=== PATIENT | female | born 2005 | race Hispanic/Latino ===

== ENCOUNTER 2025-11-05 11:16 | Emergency (ER) | payer OTHER, SELFPAY ==
[2025-11-05] VITALS (20 sets, daily range): BP systolic 109–147; BP diastolic 69–90; PULSE 70–79; RESP 16–17; TEMP 36.4–36.7; O2SAT 98–100
--- OUTSIDE RECORDS SUMMARY | 2025-11-05 11:18 | XMS_ITS | Data Portability ---
Author Organization [facility] [place] Address [address] [place] [address] Assessment Encounter Date Assessment Date Assessment LastModified by Organization Details LastModified Time 09/03/2022 09/03/[address] trich Discussed abstinence, safe sex, contraception, STDs, and . discussed NSAIDS (ibuprofen) vs OCP for control of cramps. Discussed that OCP would also help with making periods shorter, insight director, and help with PMS/anxiety symptoms. She and mom would like to try OCP> Discussed the usage, side effects, risks, and benefits of OCP use. Questions answered. Prescription given for sprinted. She will start OCP with next menses and follow up for a med check in 4 mos. [email or web address] Not available 09/03/2022 19:22:08 01/06/2023 01/06/2023 doing reasonably well on ocp dysmenorrhea improved but not gone, still one bad day- first day of period will add scheduled ibuprofen starting day before period- 600mg TID day before period and first day of period. IF this does not help, will do US OCP refilled [email or web address] Not available 01/07/2023 09:00:57 09/28/2024 09/28/2024 Annual gynecological exam performed. Patient will come back in a year unless there are new symptoms. [email or web address] Not available 09/28/2024 16:39:14 Plan of Treatment Reminders Order Date Submit Date Provider Last Modified By Organization Details Last Modified Time Details Appointments None recorded. Lab None recorded. Referral None recorded. Procedures None recorded. Surgeries None recorded. Imaging None recorded. Medication Orders Slynd 4 mg (28) tablet 2024 025 [facility], [address] [place] [address], [address], 5 09:27:51 Sprintec (28) 0.25 mg-0.035 mg tablet 2023 024 [facility], [address] [place] [address], [address], 5 09:27:55 Sprintec (28) 0.25 mg-0.035 mg tablet 2023 024 [facility] [address], [address] [place] [address], [address], 5 09:27:55 Sprintec (28) 0.25 mg-0.035 mg tablet 2022 023 [facility], [address] [place] [address], [address], 5 09:27:55 Sprintec (28) 0.25 mg-0.035 mg tablet 2021 022 [place] [address], [address] [place] [address], [address], 5 09:27:55 Patient TargetsNo targets recorded. Patient InstructionsNo instructions recorded. Reason for Referral None Reported. Results Created Date Observation Date Name Description Value Unit Range Abnormal Flag Note LastModifiedBy Organization Detail LastModifiedTime 09/03/2009/03/2022 CT/GC AND TRICH OMONA S VAGIN ANDERSON (RRNA ), URINE chlamydia trachomatis, PCR Negati ve negati ve Not Available [facility] [address] [place] [address], [phone], 09/04/2022 11:54:29 09/03/20 22 09/03/2022 CT/GC AND TRICH OMONA S VAGIN ANDERSON (RRNA ), URINE neisseria gonorrhoeae, PCR Negati ve negati ve Not Available [facility] [address] [place], [address], 09/04/2022 11:54:29 09/03/20 22 09/03/2022 CT/GC AND TRICH OMONA S VAGIN ANDERSON (RRNA ), URINE trichomonas vaginalis ribosomal RNA (rrna) Negati ve negati ve Not Available [facility] [address] [place], [address], 09/04/2022 11:54:29 09/28/20 24 09/28/2024 CT/GC AND TRICH OMONA S VAGIN ANDERSON (RRNA ), URINE chlamydia trachomatis, PCR Negati ve negati ve Not Available [facility] (Lab) [address] [facility], [place], [address], 2024 13:40:15 09/28/20 24 09/28/2024 CT/GC AND TRICH OMONA S VAGIN ANDERSON (RRNA ), URINE neisseria gonorrhoeae, PCR Negati ve negati ve Not Available [facility] (Lab) [address] [facility], [place], [address], 2024 13:40:15 09/28/20 24 09/28/2024 CT/GC AND TRICH OMONA S VAGIN ANDERSON (RRNA ), URINE trichomonas vaginalis ribosomal RNA (rrna) Negati ve negati ve Not Available [facility] (Lab) [address], [place], [address], 2024 13:40:15 Result Notes None recorded. Problems Name Problem SNOMED Code Status Onset Date Resolution Date Notes Provider Name and Address Organization Details Recorded Time Mixed anxiety and depressive disorder 644847319 Active 2023 Sarah de santiago [facility] 16:40:50 Attention deficit hyperactivity disorder 641008632 Active 2023 Sarah de santiago [facility] 16:40:57 Problem Notes None recorded. Medical Equipment None Reported. Allergies No known drug allergies Medications Name Sig Start Date Stop Date Status Note LastModified by Organization Details LastModified Time fluoxetine 40 mg capsule TAKE 1 CAPSULE BY MOUTH ONCE DAILY IN THE MORNING FOR 30 DAYS active Not Available Not Available No t Available Concerta 18 mg tablet,exte nded release TAKE 1 TABLET BY MOUTH IN THE MORNING 01/06 completed Not Available Not Available Not Available fluoxetine 10 mg tablet TAKE 1 TABLET BY MOUTH ONCE DAILY ALONG WITH ONE 20MG TABLET FOR A TOTAL DOSE OF 30MG 01/14 completed Not Available Not Available Not Available Concerta 54 mg tablet,exte nded release TAKE 1 TABLET BY MOUTH IN THE MORNING active Not Available Not Available No t Available fluoxetine 20 mg tablet TAKE 1 TABLET BY MOUTH ONCE DAILY 01/14 completed Not Available Not Available Not Available triamcinolo ne acetonide 0.1 % topical ointment APPLY OINTMENT TOPICALLY TO AFFECTED AREA TWICE DAILY active Not Available Not Available No t Available lansoprazol e 30 mg capsule,del ayed release TAKE 1 CAPSULE BY MOUTH TWICE DAILY 09/28 completed Not Available Not Available Not Available Concerta 36 mg tablet,exte nded release TAKE 1 TABLET BY MOUTH IN THE MORNING 09/28 completed Not Available Not Available Not Available omeprazole 20 mg capsule,del ayed release TAKE 1 CAPSULE BY MOUTH TWICE DAILY BEFORE BREAKFAST AND SUPPER 09/28 completed Not Available Not Available Not Available amoxicillin 875 mg-potassiu m clavulanate 125 mg tablet TAKE 1 TABLET BY MOUTH TWICE DAILY 10/10 completed Not Available Not Available Not Available Concerta 27 mg tablet,exte nded release TAKE 1 TABLET BY MOUTH IN THE MORNING 01/14 completed Not Available Not Available Not Available Sprintec (28) 0.25 mg-0.035 mg tablet Take 1 tablet by mouth once daily 10/13 completed Not Available Not Available Not Available fluoxetine 60 mg tablet TAKE 1 TABLET BY MOUTH ONCE DAILY 10/12 completed Not Available Not Available Not Available Slynd 4 mg (28) tablet Take 1 tablet every day by oral route. 2024 active Not Available Not Available Not Avai lable Vitals Date Recorded Body height Body mass index (BMI) [Percentile] Per age and sex Body mass index (BMI) Body weight Systolic And Diastolic Provider Name and Address Organization Details Last Updated DateTime 01/06/2023 162.56 cm 49 % 20.9 kg/m2 79537.2 7 g 114/72 mm[Hg] [facility] 3 17:39:14 Date Recorded Body weight Body mass index (BMI) Body mass index (BMI) [Percentile] Per age and sex Body height Systolic And Diastolic Provider Name and Address Organization Details Last Updated DateTime 01/15/2024 47814.3 8 g 23 kg/m2 68 % 162.56 cm 118/78 mm[Hg] Viktoria Eldridge [facility] 4 15:00:34 Date Recorded Body height Body mass index (BMI) Body mass index (BMI) [Percentile] Per age and sex Body weight Systolic And Diastolic Provider Name and Address Organization Details Last Updated DateTime 09/03/2022 162.56 cm 20.9 kg/m2 51 % 78003.2 7 g 104/63 mm[Hg] [facility] 2 15:58:40 Date Recorded Body height Body mass index (BMI) Body mass index (BMI) [Percentile] Per age and sex Body weight Systolic And Diastolic Provider Name and Address Organization Details Last Updated DateTime 09/28/2024 162.56 cm 22.3 kg/m2 59 % 74585.0 1 g 125/85 mm[Hg] Sarah Flores [facility] 4 16:40:10 Date Recorded Body height Body mass index (BMI) Body mass index (BMI) [Percentile] Per age and sex Body weight Systolic And Diastolic Systolic And Diastolic Provider Name and Address Organization Details Last Updated DateTime 5 162.56 cm 25.6 kg/m2 81 % 81192.2 6 g 141/95 mm[Hg] 136/92 mm[Hg] Jacquie Fink [facility] 5 11:25:27 Social History Question Answer Notes LastModified by Organizat ion Details LastModified Time Tobacco Smoking Status Never Smoker Cecelia Dalton [facility] 09/03/2022 16:04:06 Are You Blind Or Do You Have Difficulty Seeing? No Information n ot available 09/28/2024 In The 14 Days Before Symptom Onset, Have You Had Close Contact With A Laboratory-confirm ed COVID-19 While That Case Was Ill? No [email or web address] Information n ot available 09/28/2024 In The 14 Days Before Symptom Onset, Have You Had Close Contact With A Person Who Is Under Investigation For COVID-19 While That Person Was Ill? No [email or web address] Information not available 09/28/2024 Have You Been To An Area Known To Be High Risk For COVID-19? No [email or web address] Information not available 09/28/2024 Are You Deaf Or Do You Have Serious Difficulty Hearing? No [email or web address] Information not available 09/28/2024 What Type Of Diet Are You Following? REGULAR [email or web address] Information n ot available 09/28/2024 Do You Use Your Seat Belt Or Car Seat Routinely? Yes [email or web address] Information not available 09/28/2024 Do You Have Smoke And Carbon Monoxide Detectors In Your Home? Yes [email or web address] Information not available 09/28/2024 Do You Use Sunscreen Routinely? Yes Information not available 09/28/2024 Has Tobacco Cessation Counseling Been Provided? No Information not available 09/03/2022 Do You Have Difficulty Walking Or Climbing Stairs? No [email or web address] Information not available 09/28/2024 Sex: Unknown Functional Status Question Answer Note LastModified by Organizat ion Details LastModified Time Do you use any illicit or recreational drugs? No Information not available 09/03/2022 Do you or have you ever used any other forms of tobacco or nicotine? No Information not available 09/03/2022 Are you able to walk independently without assistance or assistive devices? [email or web address] Information not available 09/28/2024 Are you able to care for yourself independently? Yes [email or web address] Information not available 09/28/2024 Do you have difficulty dressing, bathing, grooming, or toileting? No [email or web address] Information not available 09/28/2024 What is your exercise level? Occasional [email or web address] Information not available 09/28/2024 Mental Status Question Answer Note LastModified by Organization D etails LastModified Time Do you feel stressed (tense, restless, nervous, or anxious, or unable to sleep at night)? [id number] [email or web address] Information not available 09/28/2024 Family History Relationship Description Onset Age of this Age Resolved Age Notes LastModified by Organization Details LastModified Time Mother Anemia [email or web address] Not available 16:01:40 Mother Polycystic ovary syndrome [email or web address] Not available 2021 16:03:13 Mother Disorder of thyroid gland [email or web address] Not available 2021 16:03:44 Paternal Grandmother Malignant neoplasm of cervix uteri [email or web address] Not available 16:01:51 Paternal Grandmother Diabetes mellitus [email or web address] Not available 2021 16:02:28 Paternal Grandmother Hypercholest erolemia [email or web address] Not available 2021 16:02:50 Paternal Grandfather Heart disease [email or web address] Not available 2021 16:02:02 Paternal Grandfather Diabetes mellitus [email or web address] Not available 2021 16:02:28 Paternal Grandfather Hypertensive disorder [email or web address] Not available 2021 16:03:02 Father Diabetes mellitus [email or web address] Not available 2021 16:02:28 Father Hypercholest erolemia smcaley Not available 2021 16:02:50 Maternal Grandmother Diabetes mellitus [email or web address] Not available 2021 16:02:28 Maternal Grandmother Uterine prolapse [email or web address] Not available 2021 16:03:25 Maternal Grandmother Disorder of thyroid gland [email or web address] Not available 2021 16:03:44 Maternal Grandfather Diabetes mellitus [email or web address] Not available 2021 16:02:28 Maternal Aunt Hypercholest erolemia smcaley Not available 2021 16:02:50 Maternal Aunt Hypertensive disorder [email or web address] Not available 2021 16:03:02 Maternal Aunt Disorder of thyroid gland [email or web address] Not available 2021 16:03:44 Medical History Condition Response Allergies (Food, seasonal, environmental ) N Other N Breast Cancer N Drug/Latex Allergies/Reactions N Blood Transfusion N Dermatologic Disorders N Lung Disease N Defects or Inherited Disease N Breast Problem N Gestational Diabetes N Hematologic disorders N Anesthesia Complications N History of STI N Deep Vein Thrombosis N Polycystic ovary syndrome N Anxiety Disorder Y Autoimmune disease N Arthritis N Infertility N Polyps N Acid Reflux (GERD) N History of abnormal pap N Cancer N Stroke N Varicosities N Neurologic/Epilepsy Y Endometriosis N High Cholesterol N Headaches N Fibromyalgia N Kidney Disease N Heart Problems N Kidney or Bladder Problems N Thyroid Problems N GI Problems N Eating Disorder N Anemia N Art (IVF or FET) N Psychiatric Illness Y Ovarian Cancer N Diabetes N Pulmonary (TB, Asthma) N Hepatitis/Liver Disease N No Past Medical History N Eczema N Urinary Tract Infection N Abuse/Domestic Violence N Asthma N Trauma/Violence N Depression/ depression Y Heart Disease N Pre-Eclampsia N Hypertension N Osteoporosis N Thrombophilias N Gynecological History Statement/Question Response Flow Heavy Date of Last Mammogram Date of LMP 10/01/2025 On BCP's at Conception? Y Was last menstrual period normal Y STIs/STDs N HPV Vaccine N Duration of Flow (days) 6 Current Control Method BCPs Are cycles usually normal Y Date of Last Colonoscopy Frequency of Cycle (Q days) 28 Sexually Active? Y Menses Monthly Y Date of DEXA bone scan Age of first menstrual cycle 10 Date of Last Pap Smear Sexual Problems? N LMP Definite Obstetrics History GPAL:G 0 P 0 0 0 0 Type Value Living 0 Total 0 Past Encounters Encounter ID Performer Location Encounter Start Date Encounter Closed Date Diagnosis/Indication Diagnosis SNOMED-CT Code Diagnosis ICD10 Code Diagnosis IMO Codes Diagnosis Note [id number] Enriqueta Li MD [place] [address] [address] 09/03/2022 15:53:43 09/04/2022 14:41:25 Dysmenorrhea 895332297 N94.6 Premenstru al tension syndrome 07589647 N94.3 Venereal d isease screening 577356138 Z11.3 Initial pr escription of oral contraception 974098819 Z30.011 [id number] Enriqueta Li MD [place] [address],[facility] [place] [address] 01/06/2023 17:20:25 01/07/2023 16:40:55 Dysmenorrhea 703974790 N94.6 Surveillan ce of oral contraception 472023029 Z30.41 [id number] Rasheeda Rosales SHADI [place] [address],[place] [address] 01/15/2024 14:35:01 01/15/2024 15:06:27 Contraception care management 134637416 Z30.9 Doing well with OCP and desires to continuere fills sent x 12 months - r/b/a reviewedde clined STI screen Take Calcium with Vitamin D daily if not receiving in daily diet. It is strongly advised to have an annual flu shot and up can obtain at most pharmacies . If you have not had a TDap shot in the last 10 years you should obtain one as well. Discussed with patient & provided with informatio n regarding Gardisil vaccine to prevent the 4 strains for HPV that cause cervical cancer. Encourage safe sexual practices, to use condoms and limit partners if not already in a monogamous relationsh ip. Do monthly self breast exams. BRCA testing is now available for patients with strong genetic history of female cancer. If interested contact the office. Engage in daily exercise of low impact aerobic exercise 45-60 minutes 4-5 times weekly. Avoid tobacco, illicit drugs, and alcohol. This lifestyle behavior pattern will lead to less health conditions and longer life span. If BMI greater than 25 dietary consult advised. Pap smear is not recommende d prior to the age of 21. If you have any concerns, pelvic, or vaginal problems we can discuss testing. Patient received above instructio ns, and questions have been answered. If you have any questions please call or respond to this email. Patient was made aware of the patient portal and may obtain a paper copy of today's plan if desired. Surveillan ce of oral contraception 446201516 Z30.41 [id number] WAYNE Carolina [place] [address],[place] [address] 09/28/2024 16:22:00 09/28/2024 17:27:01 Gynecologic examination 89242533 Z01.419 WWEBC - OCP, refills sent, r/b/a reviewedpa p due at 21/ct/tr ich urine testing sent It is strongly advised to have an annual flu shot and up can obtain at most pharmacies . If you have not had a TDap shot in the last 10 years you should obtain one as well. Discussed with patient & provided with informatio n regarding the HPV vaccine if applicable . Encourage safe sexual practices, to use condoms and limit partners if not already in a monogamous relationsh ip. Do monthly self breast exams. BRCA testing is now available for patients with strong genetic history of female cancer. If interested contact the office. Engage in regular exercise. Avoid tobacco, illicit drugs, and alcohol. This lifestyle behavior pattern will lead to less health conditions and longer life span. If BMI greater than 25 dietary consult advised. Pap smear is not recommende d prior to the age of 21. If you have any concerns, pelvic, or vaginal problems we can discuss testing. Patient received above instructio ns, and questions have been answered. If you have any questions please call or respond to this email. Patient was made aware of the patient portal and may obtain a paper copy of today's plan if desired. Surveillan ce of oral contraception 232338917 Z30.41 [id number] WAYNE Carolina [place] [address] [address] 10/12/2025 10:32:14 10/13/2025 12:04:49 Gynecologic examination 81772608 Z01.261 [id number] WWEPap - due at age 21STI screen - declinedRo utine labs - PCPRTC in 1 yr or sooner if needed It is strongly advised to have an annual flu shot and up can obtain at most pharmacies . If you have not had a TDap shot in the last 10 years you should obtain one as well. Discussed with patient & provided with informatio n regarding the HPV vaccine if applicable . Encourage safe sexual practices, to use condoms and limit partners if not already in a monogamous relationsh ip. Do monthly self breast exams. BRCA testing is now available for patients with strong genetic history of female cancer. If interested contact the office. Engage in regular exercise. Avoid tobacco and illicit drugs. This lifestyle behavior pattern will lead to less health conditions and longer life span. If BMI greater than 25 dietary consult advised. Questions answered. Contracept ion care management 137788681 Z30.9 [id number] Increased acne and headaches on current OCPwe agreed to switch to slyndRx sent, r/b/a reviewedRT C for med check in 3-4 months Adult heal th examination 700969807 Z00.00 [id number] Health Concerns Section Related Observation LastModified by Organization Detai ls LastModified Time None Recorded Concern Status LastModified by Organization Details LastModified Time None Recorded Advance Directives Directive None Recorded Payers Insurance Date Sequence Insurance Name Policy Number Policy Morrison Covered Member ID Morrison Member ID Guarantor Name 10/13/2025 1 [facility] - DOS ON OR AFTER 21 (MEDICAID REPLACEMENT - HMO) Leeanna Rain [id number] Leeanna Rain Notes Date Note Type Note Provider Name and Address Organization Details Recorded Time 2 text/html Patient is a 16yo G0 who presents for painful periods. She is not sexually active, but was one time 3 years ago. Menses: regular since menarche age 10, bleeds 7-8days with severe cramps.s She tried increasing exercise and changing to give up junk food, but that did not help. Acetaminophen does not help either. She has 3 bad days at the start that she feels horrible and pain is so bad it brings her to tears. She tries very hard not to miss school. SHe also notes some anxiety before her periods that is bothersome. Concerns: HPV vaccine: uncertain Depression:denies Domestic violence:denies exercise:yes, daily Enriqueta Li MD [address], [place], [address], [facility] 09/03/2022 19:22:28 3 text/html Pt is a 17yo G0 who presents for follow up OCP start in Sep for dysmenorrhea, acne, PMS. She reports acne is better, periods insight director, and cramps are now only one day but still really bad on that one day. She recently started prozac for anxiety. Is remembering pills, no side effects. Enriqueta Li MD [address], [place], [address], [facility] 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 01/15/2024 15:05:51 4 text/html Annual GYNReported by PatientGenitourinary symptomsFor menstrual cycle, patient reportsnormal menses. For urinary symptoms, patient reportsno hematuriaandno incontinence. For vulva, patient reportsno genital lesion. For vagina, patient reportsnormal vaginal discharge.Breast symptomsFor breast, patient reportsno breast pain,no breast lump, andno nipple discharge.ContraceptionFo r current contraception, patient reportssatisfied with current contraceptionandoral contraceptives.Endocrine symptomsFor sexual complaints, patient reportsno sexual complaints,no pain during intercourse, andnormal libido. For menopausal symptoms, patient reportsno menopausal symptomsandnormal vaginal lubrication.Psychological symptomsFor psychological symptoms, patient reportsno depression,no anxiety, andno pmdd.Preventative measuresFor preventive measures, patient reportsencourage self breast examination,encourage regular exercise,encourage no tobacco use, andencourage regular mammograms starting age 40.BC - OCP denies h/o DVT/PE, HTN, Stroke/MT, cancer, liver disease, or migraine with aura WAYNE Carolina [address], [place], [address], [facility] 09/28/2024 17:22:58 5 text/html Annual GYNReported by PatientGenitourinary symptomsFor menstrual cycle, patient reportsnormal menses. For urinary symptoms, patient reportsno hematuriaandno incontinence. For vulva, patient reportsno genital lesion. For vagina, patient reportsnormal vaginal discharge.Breast symptomsFor breast, patient reportsno breast pain,no breast lump, andno nipple discharge.ContraceptionFo r current contraception, patient reportsoral contraceptives.Endocrine symptomsFor sexual complaints, patient reportsno sexual complaints,no pain during intercourse, andnormal libido. For menopausal symptoms, patient reportsno menopausal symptomsandnormal vaginal lubrication.Psychological symptomsFor psychological symptoms, patient reportsno depression,no anxiety, andno pmdd.Preventative measuresFor preventive measures, patient reportsencourage self breast examination,encourage regular exercise,encourage no tobacco use, andencourage regular mammograms starting age 40.20yo G0BC - OCPhas noticed increased acne and headaches over the past yr in college, dental hygiene at [employer] and WAYNE Weber [address], [place], [address], [place] [facility] 10/13/2025 09:30:36 OBGyn Episode No OBEpisode recorded.
--- OUTSIDE RECORDS SUMMARY | 2025-11-05 11:18 | XMS_ITS | Clinical Summary ---
Author Organization [facility] Address [address] [place] [address] Care Team Providers Care Merchandising Representative Name Role Phone Victor Hugo Jennings MD Primary Care Provider [phone] Source Comments [facility],non-owned Affiliates and Associated Physician Practices is amultiple site organization consisting of ambulatory clinics and hospital sitesin [place], [place], [place] and [place]. This disclosure is being madepursuant to the Care Everywhere program and may not contain all information available regarding this patient. Last updated 18.[facility] Allergies Active Allergy Reactions Criticality Noted Date Comments Beans Rash Medium 07/01/2019 Medications * Be aware that medications may not be up to date on this document. Alwaysverify current medications with the patient. ibuprofen (MOTRIN) 400 MG tablet Take 1 tablet by mouth every 6 hours as needed for Pain 30 tablet 9 Active FLUoxetine (PROzac) 60 MG tablet Take 1 (one) tablet by mouth once daily 3 Active Sprintec 28 0.25-35 MG-MCG tablet Take 1 (one) tablet by mouth once daily 3 Active Methylphenidate HCl (methylphenidat e CR) 36 MG tablet Take 1 (one) tablet by mouth once daily 3 Active omeprazole (PriLOSEC) 20 MG capsule Take 1 (one) capsule by mouth 2 times daily, before breakfast and supper 60 capsule 2 3 Active polyethylene glycol 3350 (Miralax) 17 GM/SCOOP powder Take 17 (seventeen) g by mouth once daily For clean out take 16 capfuls over 4 hours. 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 Resolved Problems Problem Noted Date Diagnosed Date Resolved Date Constipation 10/22/2023 11/19/2023 Family History Medical History Relation Name Comments Celiac Disease Neg Hx Crohn's Disease Neg Hx Ulcerative Colitis Neg Hx Social History Tobacco Use Types Packs/Day Years Used Date Smoking Tobacco: Never Passive Smoke Exposure: Yes Smokeless Tobacco: Never Tobacco Cessation:Counseling Given: Not Answered Passive Exposure Comments:Dad smokes outside Alcohol Use Standard Drinks/Week Comments No 0 (1 standard drink = 0.6 oz pur e alcohol) Comments No Sex and Gender Information Value Date Recorded Sex Assigned at Not on file Legal Sex Female 8:29 AM CDT Gender Identity Not on file Sexual Orientation Not on file Last Filed Vital Signs Vital Sign Reading Time Taken Comments Blood Pressure 108/70 10/22/2023 9:26 AM FRUIT SORTER Pulse 70 12/22/2019 4:17 PM FRUIT SORTER Temperature 16 C (60.8 F) 12/22/2019 4:17 PM FRUIT SORTER Respiratory Rate 20 03/10/2019 2:12 PM CDT Oxygen Saturation - - Inhaled Oxygen Concentration - - Weight 59.2 kg (130 lb 8.2 oz) 10/22/2023 9:26 A M FRUIT SORTER Height 165.5 cm (5' 5.16) 10/22/2023 9:26 AM CS T Body Mass Index 21.61 10/22/2023 9:26 AM FRUIT SORTER Plan of Treatment Health Maintenance Due Date Last Done Comments HIV SCREENING 2020 HPV VACCINE (1 - 3-dose series) 2020 MENINGOCOCCAL (Group B) VACC INE SHARED DECISION-MAKING (1 of 2 - Standard) 2021 CHLAMYDIA/GONORRHEA SCREENING 09/03/2023 09/03/2022 HEPATITIS C SCREENING 09/25/2023 DTAP/TDAP/TD VACCINES (1 - Tdap) 2024 HEPATITIS B VACCINE (1 of 3 - 19+ 3-dose series) 2024 DEPRESSION SCREENING 11/10/2024 COVID-19 VACCINE (1 - 2024-2 6 season) 2025 INFLUENZA VACCINE (#1) 2025 ZOSTER VACCINE (1 of 2) 2055 HIB VACCINE Aged Out No longer eligi ble based on patient's age to complete this topic MENINGOCOCCAL GROUPS A/C/Y/W VACCINE Aged Out No longer eligible b ased on patient's age to complete this topic PNEUMOCOCCAL VACCINE Aged Out No long er eligible based on patient's age to complete this topic Insurance [facility] Care Teams Merchandising Representative Relationship Specialty Start Date End Date Victor Hugo Jennings MD PCP - General Pediatrics 02/12/19
--- OUTSIDE RECORDS SUMMARY | 2025-11-05 11:18 | XMS_ITS | Continuity of Care Document ---
Author Organization [facility] Address [address] [place] [address] Assessment No assessment recorded. Plan of Treatment Reminders Order Date Submit Date Provider Last Modified By Organization Details Last Modified Time Details Appointments None recorded . Lab None recorded . Referral None recorded . Procedures None recorded . Surgeries None recorded . Imaging None recorded . Medication Orders Slynd 4 mg (28) tablet 025 10/13/20 25 [employer] [facility], [address] [place] [address], [address], 5 09:27:51 Patient TargetsNo targets recorded. Patient InstructionsNo instructions recorded. Reason for Referral None Reported. Problems Name Problem SNOMED Code Status Onset Date Resolution Date Notes Provider Name and Address Organization Details Recorded Time Mixed anxiety and depressive disorder 167210372 Active 2023 Sarah de santiago [facility] 4 16:40:50 Attention deficit hyperactivity disorder 028853603 Active 2023 Sarah de santiago [facility] 4 16:40:57 Problem Notes None recorded. Medical Equipment [...] 5 162.56 cm 25.6 kg/m2 81 % 15238.2 6 g 141/95 mm[Hg] 136/92 mm[Hg] Jacquie Fink [facility] 5 11:25:27 Social History Question Answer Notes LastModified by Organizat ion Details LastModified Time Tobacco Smoking Status Never Smoker Cecelia Dalton [facility], [facility] 09/03/2022 16:04:06 Are You Blind Or Do You Have Difficulty Seeing? No [email or web address] Information n ot available 09/28/2024 In The 14 Days Before Symptom Onset, Have You Had Close Contact With A Laboratory-confirm ed COVID-19 While That Case Was Ill? No [email or web address] Information n ot available 09/28/2024 In The 14 Days Before Symptom Onset, Have You Had Close Contact With A Person Who Is Under Investigation For COVID-19 While That Person Was Ill? No Information not available 09/28/2024 Have You Been To An Area Known To Be High Risk For COVID-19? No [email or web address] Information not available 09/28/2024 Are You Deaf Or Do You Have Serious Difficulty Hearing? No [email or web address] Information not available 09/28/2024 What Type Of Diet Are You Following? REGULAR Information n ot available 09/28/2024 Do You Use Your Seat Belt Or Car Seat Routinely? Yes [email or web address] Information not available 09/28/2024 Do You Have Smoke And Carbon Monoxide Detectors In Your Home? Yes [email or web address] Information not available 09/28/2024 Do You Use Sunscreen Routinely? Yes [email or web address] Information not available 09/28/2024 Has Tobacco Cessation Counseling Been Provided? No Information not available 09/03/2022 Do You Have Difficulty Walking Or Climbing Stairs? No [email or web address] Information not available 09/28/2024 Sex: Unknown Functional Status Question Answer Note LastModified by Organizat ion Details LastModified Time Do you use any illicit or recreational drugs? No Information not available 09/03/2022 Do you or have you ever used any other forms of tobacco or nicotine? No Information not available 09/03/2022 Are you able to walk independently without assistance or assistive devices? YESWOREST [email or web address] Information not available 09/28/2024 Are you able to care for yourself independently? Yes [email or web address] Information not available 09/28/2024 Do you have difficulty dressing, bathing, grooming, or toileting? No [email or web address] Information not available 09/28/2024 What is your exercise level? Occasional [email or web address] Information not available 09/28/2024 Mental Status Question Answer Note LastModified by Organization D etails LastModified Time Do you feel stressed (tense, restless, nervous, or anxious, or unable to sleep at night)? [id number] [email or web address] Information not available 09/28/2024 Family History Relationship [...] (Food, seasonal, environmental ) N Other N Drug/Latex Allergies/Reactions N Blood Transfusion N Breast Cancer N Dermatologic Disorders N Lung Disease N Defects or Inherited Disease N Breast Problem N Gestational Diabetes N Hematologic disorders N Anesthesia Complications N History of STI N Deep Vein Thrombosis N Polycystic ovary syndrome N Anxiety Disorder Y Autoimmune disease N Arthritis N Polyps N Infertility N Acid Reflux (GERD) N History of abnormal pap N Cancer N Varicosities N Stroke N Neurologic/Epilepsy Y Endometriosis N High Cholesterol N Fibromyalgia N Headaches N Kidney Disease N Heart Problems N Thyroid Problems N Kidney or Bladder Problems N GI Problems N Eating Disorder [...] ICD10 Code Diagnosis IMO Codes Diagnosis Note [id number] WAYNE [place] Butler [address] [address] 10/12/2025 10:32:14 10/13/2025 12:04:49 Gynecologic examination 42928543 Z01.693 [id number] WWEPap - due at age 21STI screen [...] advised. Questions answered. Contracept ion care management [id number] Z30.9 [id number] Increased acne and headaches on current OCPwe agreed to switch to slyndRx sent, r/b/a reviewedRT C for med check in 3-4 months Adult heal th examination [id number] Z00.00 [id number] Health Concerns Section Related Observation LastModified by Organization Detai ls LastModified Time None Recorded Concern Status LastModified by Organization Details LastModified Time None Recorded Payers Encounter Date Sequence Insurance Name Policy Number Policy Morrison Covered Member ID Morrison Member ID Guarantor Name 10/12/2025 1 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 10/13/2025 09:30:36 OBGyn Episode No OBEpisode recorded.
--- NOTE | 2025-11-05 12:00 | ED.ALLEREA ---
HPI - Allergic Reaction General Chief complaint: Allergic Reaction Stated complaint: i think I'm having an allergic reaction Time Seen by Provider: 11/05/25 11:52 Source: patient and family Mode of arrival: ambulatory Limitations: no limitations History of Present Illness HPI narrative: 20 years old female wake up this morning with itching red skin rash on the face and upper back. History of eczema. Patient denies any fever chills nausea vomiting trouble swallowing or breathing. History of similar symptoms of unknown etiology Related Data Allergies Allergy/AdvReac Type Severity Reaction Status Date / Time sheth lucio Allergy Unknown Verified 11/05/25 11:23 Review of Systems Review of Systems: All systems reviewed & are unremarkable except as noted in HPI and below Exam Narrative: General appearance: Well-developed, well-nourished Skin: Macular rashes face upper back abdomen Head: Normocephalic, nontraumatic Eyes: Clear conjunctiva ENT: Oropharynx normal, ears normal, nose normal Neck: Supple, nontender Chest and respiratory: Airway patent, no respiratory distress, no accessory muscle use Heart: Regular rate/rhythm Abdomen: Soft, nontender, no organomegaly, quiet bowel sounds Musculoskeletal: Normal range of motion, nontender back Neurologic: Alert and oriented ?3, SURFACE WATER TECHNICIAN is normal as tested, no gross motor deficit Course Vital Signs Vital signs: Vital Signs Temperature 36.4 C L 11/05/25 11:17 Pulse Rate 70 11/05/25 11:17 Respiratory Rate 17 11/05/25 11:17 Blood Pressure 120/71 11/05/25 11:17 Pulse Oximetry 100 11/05/25 11:17 Oxygen Delivery Room Air 11/05/25 11:17 Temperature 36.4 C L 11/05/25 11:17 Pulse Rate 79 11/05/25 11:28 Respiratory Rate 16 11/05/25 11:28 Blood Pressure 129/73 11/05/25 11:28 Pulse Oximetry 98 11/05/25 11:28 Oxygen Delivery Room Air 11/05/25 11:27 MDM MDM Narrative Medical decision making narrative: Differential diagnosis allergic reaction of unknown etiology History of eczema Discharged on prednisone and Zyrtec The pt was discharged to home.the pt,s condition upon discharge was fair,education was provided to the pt in reference to the final impression,discharge study results,treatment,prognosis and need for follow up . Differential Diagnosis Differential Diagnosis: Allergic reaction, unspecified Critical Care Time Critical Care Time Critical Care Time: No Discharge Plan Discharge Clinical Impression: Allergic reaction Patient Disposition: Home Condition: Improved Instructions: General Allergic Reaction (ED) Additional Instructions: Return if symptoms are worsening , call your family physician for appointment, take Tylenol as as needed for aches and pain, continue home medications. Patient Language: Syrian Prescriptions: New Zyrtec 10 mg capsule 10 mg PO BID PRN (Reason: allergy symptoms) Qty: 20 0RF prednisone 20 mg tablet 40 mg PO DAILY 5 Days Qty: 10 0RF Follow-up/Referrals: Isidro,Cony Garcia MD [Primary Care Provider]
--- OUTSIDE RECORDS SUMMARY | 2025-11-05 12:01 | XMS_ITS | Clinical Summary ---
Author Organization [facility] Address [address] [place] [address] Care Team Providers Care Service Coordinator Elderly Facility Name Role Phone Victor Hugo Jennings MD Primary Care Provider [phone] Source Comments [facility],non-owned Affiliates and Associated Physician Practices is amultiple site organization consisting of ambulatory clinics and hospital sitesin [place], [place], [place] and [place]. This disclosure is being madepursuant to the Care Everywhere program and may not contain all information available regarding this patient. Last updated 18.[facility] [employer] Allergies Active Allergy Reactions Criticality Noted Date [...] Comments Blood Pressure 108/70 10/22/2023 9:26 AM CALENDERING MACHINE OPERATOR Pulse 70 12/22/2019 4:17 PM CALENDERING MACHINE OPERATOR Temperature 16 C (60.8 F) 12/22/2019 4:17 PM CALENDERING MACHINE OPERATOR Respiratory Rate 20 03/10/2019 2:12 PM CDT Oxygen Saturation - - Inhaled Oxygen Concentration - - Weight 59.2 kg (130 lb 8.2 oz) 10/22/2023 9:26 A M CALENDERING MACHINE OPERATOR Height 165.5 cm (5' 5.16) 10/22/2023 9:26 AM CS T Body Mass Index 21.61 10/22/2023 9:26 AM CALENDERING MACHINE OPERATOR Plan of Treatment Health Maintenance Due Date [...] patient's age to complete this topic Insurance [facility] Care Teams Service Coordinator Elderly Facility Relationship Specialty Start Date End Date Victor Hugo Jennings MD PCP - General Pediatrics 02/12/19
[2025-11-05] MEDS: EPINEPHrine HCL INJ 1 MG/ML AMPUL 0.3 MG IM (12:51)
[2025-11-05] MEDS: LORATADINE 10 MG TABLET PO (12:52)
== END 2025-11-05 13:42 | disposition home or self-care (01) ==
PROVIDERS: Emergency Provider Emergency Medicine; PCP Pediatrics Adolescent Medicine
DX: T78.40XA Allergy, unspecified, initial encounter (principal); L30.9 Dermatitis, unspecified; X58.XXXA Exposure to other specified factors, initial encounter
CPT/HCPCS: 96372; 99283; A9270; J0166; J7512